=== PATIENT | female | born 1990 | race African-American/Black ===

== ENCOUNTER 2019-01-07 04:32 | Inpatient (IN) | payer OTHER ==
[~2019-01-07] VITALS: Ht 170.2 cm; Wt 117.9 kg
[2019-01-07] MEDS: LACTATED RINGERS 1,000 ML IV SCH ×2 (04:25→04:59)
[2019-01-07] MEDS ORDERED: DEXT 5%/LR + PITOCIN 20UNITS/L 1,000 ML IV SCH ×2 (04:41→07:36)
[2019-01-07] MEDS ORDERED: MISOPROSTOL 100MCG TABLET VG SCH (04:45)
[2019-01-07] MEDS ORDERED: CARBOPROST TROMETHAMINE 250 MCG/ML AMPUL IM PRN (04:45)
[2019-01-07] MEDS ORDERED: LIDOCAINE HCL 1% 20ML VIAL (Pyxis) INJ INFIL SCH (04:45)
[2019-01-07] MEDS ORDERED: BUTORPHANOL TARTRATE 2 MG/ML VIAL IV PRN (04:45)
[2019-01-07] MEDS ORDERED: METHYLERGONOVINE MALEATE 0.2 MG/ML IM PRN (04:45)
[2019-01-07 05:31] LABS: BASOPHILS % 0.4 % (0.0-2.0); EOSINOPHILS % 0.6 % (0.0-5.0); HEMATOCRIT. 27.9 % (36.0-48.0); HEMOGLOBIN. 8.9 g/dL (12.0-16.0); LYMPHOCYTES % 22.3 % (20.0-50.0); MEAN CORPUSCULAR HEMOGLOBIN 19.9 pg (28.0-32.0); MEAN CORPUSCULAR VOLUME 62.6 fL (81.0-99.0); MEAN PLATELET VOLUME 8.7 fl (7.4-10.4); MONOCYTES % 9.9 % (2.0-8.0); NEUTROPHILS % 66.8 % (40.0-76.0); PLATELET 251 x1000/uL (130-400); RED BLOOD CELL COUNT 4.46 mill/uL (4.2-5.4); RED CELL DISTRIBUTION WIDTH 16.9 % (11.6-14.6)
[2019-01-07 05:36] LABS: PARTIAL THROMBOPLASTIN TIME 27.4 sec (23.4-31.0); PROTHROMBIN TIME 10.1 sec (9.6-11.0)
[2019-01-07] MEDS ORDERED: CITRIC ACID/SODIUM CITRATE SOLN 30ML UDC PO NR (06:00)
[2019-01-07] MEDS ORDERED: MIDAZOLAM HCL 2 MG/2 ML VIAL ONE (06:06)
[2019-01-07] MEDS ORDERED: FENTANYL CITRATE/PF 50MCG/ML 2ML VIAL ONE (06:06)
[2019-01-07] MEDS ORDERED: PROPOFOL 200MG/20ML VIAL IV ONE (06:08)
[2019-01-07] MEDS ORDERED: OXYTOCIN 10 UNITS/ML 1ML ONE ×2 (06:08→07:07)
[2019-01-07] MEDS ORDERED: ROCURONIUM BROMIDE 10MG/ML VIAL 5ML IV ONE ×2 (06:09→06:10)
[2019-01-07] MEDS ORDERED: SUCCINYLCHOLINE CHLORIDE 200MG/10ML IV ONE (06:10)
[2019-01-07 06:11] LABS: HEPATITIS B SURFACE ANTIGEN NEGATIVE
[2019-01-07 06:14] LABS: PLATELET ESTIMATE NORMAL
[2019-01-07] MEDS ORDERED: GLYCOPYRROLATE 0.2 MG/ML 2ML VIAL ONE ×2 (07:12→07:13)
[2019-01-07] MEDS ORDERED: NEOSTIGMINE METHYLSULFATE 1MG/ML 10 ML VIAL ONE (07:12)
[2019-01-07] MEDS ORDERED: ALBUTEROL (0.083%) 2.5MG/3ML NEB HHN PRN (07:45)
[2019-01-07] MEDS ORDERED: IBUPROFEN 400MG TABLET PO PRN (07:45)
[2019-01-07] MEDS ORDERED: ALBUTEROL 6.7GM HFA INHALER ORI PRN (07:45)
[2019-01-07] MEDS ORDERED: RHO(D) IMMUNE GLOBULIN 300 MCG/SYR IM PRN (07:45)
[2019-01-07] MEDS: HYDROMORPHONE HCL/PF 2MG/ML CPJ IM PRN ×3 (07:58→09:58)
[2019-01-07] MEDS ORDERED: MEPERIDINE HCL/PF 25MG/ML CPJ IV PRN (08:30)
[2019-01-07] MEDS ORDERED: LABETALOL 5MG/ML SYR 20 MG/4 ML SYRINGE IV PRN (08:30)
[2019-01-07] MEDS ORDERED: HYDROMORPHONE HCL/PF 2MG/ML CPJ IV PRN (08:30)
[2019-01-07] MEDS ORDERED: ONDANSETRON HCL 4MG/2ML INJ IV PRN (08:30)
[2019-01-07] MEDS ORDERED: LABETALOL HCL 5MG/ML VIAL 20ML IV PRN ×3 (09:00)
[2019-01-07] MEDS ORDERED: ONDANSETRON INJ IV PRN (09:15)
[2019-01-07] MEDS ORDERED: HYDROMORPHONE PCA 10MG/50ML IV PRN (09:15)
[2019-01-07] MEDS ORDERED: DIPHENHYDRAMINE INJ IV PRN (09:15)
[2019-01-07] MEDS ORDERED: NALOXONE INJ IV PRN (09:15)
[2019-01-07 12:00] VITALS: BP 153/94
[2019-01-07 12:30] VITALS: BP 141/91
[2019-01-07 15:00] VITALS: BP 149/92
[2019-01-07] MEDS: KETOROLAC 30MG/ML VIAL IV PRN ×2 (16:47→20:36)
[2019-01-07 18:00] VITALS: BP 144/88
[2019-01-07 19:57] LABS: CLARITY URINE CLEAR (CLEAR); COLOR URINE DARK YELLOW (YELLOW); KETONES URINE NEGATIVE (NEGATIVE); LEUKOCYTE ESTERASE URINE TRACE (NEGATIVE); NITRITE URINE NEGATIVE (NEGATIVE); OCCULT BLOOD URINE 2+ (NEGATIVE); PROTEIN URINE 2+ (NEGATIVE); SPECIFIC GRAVITY URINE 1.021 (1.005-1.030)
[2019-01-07 20:08] LABS: *AMPHETAMINES SCREEN URINE NEGATIVE (NEGATIVE)
[2019-01-07 20:09] LABS: *BARBITURATES SCREEN URINE NEGATIVE (NEGATIVE); *COCAINE SCREEN URINE NEGATIVE (NEGATIVE); METHADONE URINE SCREEN NEGATIVE (NEGATIVE); PHENCYCLIDINE URINE SCREEN NEGATIVE (NEGATIVE)
[2019-01-07 20:10] LABS: CANNABINOID URINE SCREEN NEGATIVE (NEGATIVE)
[2019-01-07 20:13] LABS: *BENZODIAZEPINES SCREEN URINE PRESUMTIVE POSITIVE (NEGATIVE); OPIATES URINE SCREEN PRESUMTIVE POSITIVE (NEGATIVE)
[2019-01-07 20:25] VITALS: BP 144/92
[2019-01-08] VITALS (7 sets, daily range): BP systolic 140–163; BP diastolic 78–100
[2019-01-08] MEDS: KETOROLAC 30MG/ML VIAL IV PRN ×2 (03:36→08:09)
[2019-01-08 08:36] LABS: BASOPHILS % 0.3 % (0.0-2.0); EOSINOPHILS % 0.1 % (0.0-5.0); HEMOGLOBIN. 7.2 g/dL (12.0-16.0); LYMPHOCYTES % 19.6 % (20.0-50.0); MEAN CORPUSCULAR HEMOGLOBIN 19.6 pg (28.0-32.0); MEAN CORPUSCULAR VOLUME 62.6 fL (81.0-99.0); MEAN PLATELET VOLUME 8.5 fl (7.4-10.4); MONOCYTES % 7.3 % (2.0-8.0); NEUTROPHILS % 72.7 % (40.0-76.0); PLATELET 235 x1000/uL (130-400); RED BLOOD CELL COUNT 3.68 mill/uL (4.2-5.4); RED CELL DISTRIBUTION WIDTH 17.3 % (11.6-14.6)
[2019-01-08] MEDS ORDERED: ACETAMINOPHEN WITH CODEINE 300/30MG TABLET PO PRN (12:00)
[2019-01-08] MEDS ORDERED: IBUPROFEN 800MG TABLET PO PRN (12:00)
[2019-01-08] MEDS: IBUPROFEN 800MG TABLET PO PRN ×2 (13:07→18:40)
[2019-01-08] MEDS: LABETALOL HCL 200MG TABLET PO SCH ×2 (14:13→23:11)
[2019-01-08] MEDS: DOCUSATE SODIUM 100MG CAPSULE PO SCH (20:42)
[2019-01-08] MEDS ORDERED: BISACODYL 10MG SUPP PR PRN (23:00)
[2019-01-09 07:30] VITALS: BP 150/98
[2019-01-09] MEDS: LABETALOL HCL 200MG TABLET PO SCH ×2 (08:09→20:03)
[2019-01-09] MEDS: IBUPROFEN 800MG TABLET PO PRN ×3 (08:15→20:01)
[2019-01-09] MEDS: SIMETHICONE 80MG TABLET CHEW PO SCH ×4 (08:25→20:05)
[2019-01-09] MEDS ORDERED: BISACODYL 10MG SUPP PR SCH (08:30)
[2019-01-09 09:00] VITALS: BP 152/85
[2019-01-09] MEDS: MAGNESIUM HYDROXIDE 400MG/5ML 30ML UDC PO PRN ×2 (12:00→16:41)
[2019-01-09 14:00] VITALS: BP 149/88
[2019-01-09 19:20] VITALS: BP 154/97
[2019-01-09] MEDS: DOCUSATE SODIUM 100MG CAPSULE PO SCH ×2 (20:04→20:06)
[2019-01-09 20:56] VITALS: BP 145/90
[2019-01-10 03:27] VITALS: BP 159/92
[2019-01-10 08:00] VITALS: BP 147/85
[2019-01-10] MEDS: SIMETHICONE 80MG TABLET CHEW PO SCH (08:48)
[2019-01-10] MEDS: LABETALOL HCL 200MG TABLET PO SCH (08:48)
[2019-01-13 13:08] LABS: BENZODIAZEPINES CONF GC/MS Negative (Cutoff=200); OPIATES CONFIRMATION URINE Negative (Cutoff=200)
== END 2019-01-10 09:35 | disposition home or self-care (01) | DRG 540 ==
LOC: 8 EST LDRP 04:32 → OBSVTOIN 04:32 → 8EST 11:30
PROVIDERS: ADMIT Obstetrics & Gynecology; ATTEND Obstetrics & Gynecology
PROC: 10D00Z1 Extraction of Products of Conception, Low, Open Approach (ICD-10-PCS; principal; 2019-01-07)
DX: O34.211 Maternal care for low transverse scar from previous cesarean delivery (principal); D62 Acute posthemorrhagic anemia; O10.92 Unspecified pre-existing hypertension complicating childbirth; O99.214 Obesity complicating childbirth; O99.52 Diseases of the respiratory system complicating childbirth; J45.909 Unspecified asthma, uncomplicated; O69.81X0 Labor and delivery complicated by cord around neck, without compression, not applicable or unspecified; O99.03 Anemia complicating the puerperium; Z37.0 Single live birth; Z3A.38 38 weeks gestation of pregnancy; Z82.49 Family history of ischemic heart disease and other diseases of the circulatory system
CPT/HCPCS: 36415; 80305; 80346; 80361; 86592; 86703; 86762; 86850; 86900; 86920; 87340; 88307; J0330; J1170; J1885; J2250; J2590; J2704; J2710; J3010; J3490; J7120

== ENCOUNTER 2020-05-04 05:28 | Inpatient (IN) | payer OTHER ==
[~2020-05-04] VITALS: Ht 167.6 cm; Wt 114.8 kg
[2020-05-04] MEDS ORDERED: LACTATED RINGERS 1,000 ML IV SCH (06:15)
[2020-05-04] MEDS ORDERED: CARBOPROST TROMETHAMINE 250 MCG/ML AMPUL IM PRN (06:15)
[2020-05-04] MEDS ORDERED: METHYLERGONOVINE MALEATE 0.2 MG/ML IM PRN (06:15)
[2020-05-04] MEDS ORDERED: DEXT 5%/LR + PITOCIN 20UNITS/L 1,000 ML IV SCH ×2 (06:15→08:30)
[2020-05-04 06:24] LABS: BASOPHILS % 0.2 % (0.0-2.0); EOSINOPHILS % 0.4 % (0.0-5.0); HEMATOCRIT. 28.3 % (36.0-48.0); HEMOGLOBIN. 8.9 g/dL (12.0-16.0); MEAN CORPUSCULAR HEMOGLOBIN 19.6 pg (28.0-32.0); MEAN CORPUSCULAR VOLUME 62.3 fL (81.0-99.0); MEAN PLATELET VOLUME 8.4 fl (7.4-10.4); MONOCYTES % 8.5 % (2.0-8.0); NEUTROPHILS % 63.9 % (40.0-76.0); PLATELET 223 x1000/uL (130-400); RED BLOOD CELL COUNT 4.54 mill/uL (4.2-5.4); RED CELL DISTRIBUTION WIDTH 17.9 % (11.6-14.6)
[2020-05-04] MEDS ORDERED: CITRIC ACID/SODIUM CITRATE SOLN 30ML UDC PO NR (06:31)
[2020-05-04 06:35] LABS: PARTIAL THROMBOPLASTIN TIME 27.8 sec (23.4-31.0); PROTHROMBIN TIME 10.5 sec (9.6-11.0)
[2020-05-04] MEDS ORDERED: PROPOFOL 200MG/20ML VIAL IV ONE (06:39)
[2020-05-04] MEDS ORDERED: SUCCINYLCHOLINE CHLORIDE 200MG/10ML IV ONE (06:39)
[2020-05-04] MEDS ORDERED: LIDOCAINE HCL/PF 1% 10 MG/ML 5ML VIAL ONE ×3 (06:42→07:30)
[2020-05-04] MEDS ORDERED: OXYTOCIN 10 UNITS/ML 1ML ONE (06:42)
[2020-05-04] MEDS ORDERED: CEFAZOLIN SODIUM 1000MG/VIAL ONE (06:43)
[2020-05-04] MEDS ORDERED: SODIUM CHLORIDE 0.9% 10ML VIAL ONE (06:50)
[2020-05-04 07:06] LABS: HEPATITIS B SURFACE ANTIGEN NEGATIVE
[2020-05-04 07:08] LABS: PLATELET ESTIMATE NORMAL
[2020-05-04] MEDS ORDERED: FENTANYL CITRATE/PF 50MCG/ML 2ML VIAL ONE ×2 (07:11→07:18)
[2020-05-04] MEDS ORDERED: MIDAZOLAM HCL 2 MG/2 ML VIAL ONE (07:12)
[2020-05-04] MEDS ORDERED: HYDRALAZINE 20MG/ML VIAL ONE (07:46)
[2020-05-04] MEDS ORDERED: GLYCERIN/WITCH HAZEL LEAF MEDICATED PAD TOP PRN (08:30)
[2020-05-04] MEDS ORDERED: IBUPROFEN 400MG TABLET PO PRN (08:30)
[2020-05-04] MEDS ORDERED: BISACODYL 10MG SUPP PR PRN (08:30)
[2020-05-04] MEDS ORDERED: LANOLIN OINT 7GM TUBE TOP PRN (08:30)
[2020-05-04] MEDS ORDERED: HEMORRHOIDAL SUPP PR PRN (08:30)
[2020-05-04] MEDS ORDERED: DIPHENHYDRAMINE 25MG CAPSULE PO PRN (08:30)
[2020-05-04 08:31] LABS: CLARITY URINE CLOUDY (CLEAR); COLOR URINE DARK YELLOW (YELLOW); KETONES URINE NEGATIVE (NEGATIVE); LEUKOCYTE ESTERASE URINE NEGATIVE (NEGATIVE); NITRITE URINE NEGATIVE (NEGATIVE); OCCULT BLOOD URINE 2+ (NEGATIVE); PROTEIN URINE 1+ (NEGATIVE); SPECIFIC GRAVITY URINE 1.026 (1.005-1.030)
[2020-05-04 08:53] LABS: *AMPHETAMINES SCREEN URINE NEGATIVE (NEGATIVE)
[2020-05-04 08:54] LABS: *BARBITURATES SCREEN URINE NEGATIVE (NEGATIVE); *BENZODIAZEPINES SCREEN URINE NEGATIVE (NEGATIVE); *COCAINE SCREEN URINE NEGATIVE (NEGATIVE); METHADONE URINE SCREEN NEGATIVE (NEGATIVE); OPIATES URINE SCREEN NEGATIVE (NEGATIVE); PHENCYCLIDINE URINE SCREEN NEGATIVE (NEGATIVE)
[2020-05-04 08:57] LABS: CANNABINOID URINE SCREEN PRESUMTIVE POSITIVE (NEGATIVE)
[2020-05-04 09:00] VITALS: BP 137/82
[2020-05-04] MEDS ORDERED: PRENATAL VIT/FE FUMARATE/FA TABLET PO SCH (09:00)
[2020-05-04 09:46] LABS: CHLORIDE 109 mEq/L (98-107)
[2020-05-04 10:00] VITALS: BP 122/78
[2020-05-04 11:00] VITALS: BP 119/75
[2020-05-04] MEDS: IBUPROFEN 800MG TABLET PO PRN ×2 (11:41→17:50)
[2020-05-04] MEDS: BENZOCAINE/LANOLIN/ALOE VERA SPRAY TOP PRN (11:47)
[2020-05-04 14:00] VITALS: BP 125/79
[2020-05-04 20:00] VITALS: BP 129/70
[2020-05-04] MEDS: DOCUSATE SODIUM 100MG CAPSULE PO SCH (21:11)
[2020-05-05] VITALS: BP 125/78
[2020-05-05] MEDS: IBUPROFEN 800MG TABLET PO PRN ×3 (03:09→19:56)
[2020-05-05 03:17] VITALS: BP 126/78
[2020-05-05 07:35] LABS: BASOPHILS % 0.3 % (0.0-2.0); EOSINOPHILS % 0.5 % (0.0-5.0); LYMPHOCYTES % 20.9 % (20.0-50.0); MEAN CORPUSCULAR HEMOGLOBIN 19.7 pg (28.0-32.0); MEAN CORPUSCULAR VOLUME 62.1 fL (81.0-99.0); MEAN PLATELET VOLUME 8.9 fl (7.4-10.4); MONOCYTES % 8.2 % (2.0-8.0); NEUTROPHILS % 70.1 % (40.0-76.0); PLATELET 212 x1000/uL (130-400); RED BLOOD CELL COUNT 3.39 mill/uL (4.2-5.4); RED CELL DISTRIBUTION WIDTH 17.7 % (11.6-14.6)
[2020-05-05 08:00] VITALS: BP 129/66
[2020-05-05] MEDS: FERROUS SULFATE 325MG TABLET PO SCH ×3 (08:11→17:28)
[2020-05-05] MEDS: ACETAMINOPHEN WITH CODEINE 300/30MG TABLET PO PRN ×2 (08:12→17:28)
[2020-05-05 09:05] LABS: HEMOGLOBIN. 6.7 g/dL (12.0-16.0)
[2020-05-05 16:30] VITALS: BP 136/79
[2020-05-05 19:30] VITALS: BP 138/77
[2020-05-05] MEDS: DOCUSATE SODIUM 100MG CAPSULE PO SCH (19:57)
[2020-05-06] MEDS: ACETAMINOPHEN WITH CODEINE 300/30MG TABLET PO PRN (01:06)
[2020-05-06 04:00] VITALS: BP 131/69
[2020-05-06] MEDS ORDERED: FERR325T23 PO (07:16)
[2020-05-06] MEDS ORDERED: IBUP-2030 PO (07:16)
[2020-05-06 07:30] VITALS: BP 131/72
[2020-05-06] MEDS: IBUPROFEN 800MG TABLET PO PRN (09:47)
[2020-05-06] MEDS: BENZOCAINE/LANOLIN/ALOE VERA SPRAY TOP PRN (09:48)
[2020-05-09 07:07] LABS: CANNABINOID CONFIRMATION URINE Positive (.)
== END 2020-05-06 10:00 | disposition home or self-care (01) | DRG 560 ==
LOC: 8 EST LDRP 05:28 → OBSVTOIN 05:28 → 8EST 08:54
PROVIDERS: ADMIT Specialist; ATTEND Specialist
PROC: 10E0XZZ Delivery of Products of Conception, External Approach (ICD-10-PCS; principal; 2020-05-04)
PROC: 0HQ9XZZ Repair Perineum Skin, External Approach (ICD-10-PCS; 2020-05-04)
DX: O34.219 Maternal care for unspecified type scar from previous cesarean delivery (principal); O16.4 Unspecified maternal hypertension, complicating childbirth; D64.9 Anemia, unspecified; E66.9 Obesity, unspecified; F12.10 Cannabis abuse, uncomplicated; O71.4 Obstetric high vaginal laceration alone; O99.02 Anemia complicating childbirth; O99.214 Obesity complicating childbirth; O99.324 Drug use complicating childbirth; Z37.0 Single live birth; Z3A.38 38 weeks gestation of pregnancy; Z72.0 Tobacco use; Z79.899 Other long term (current) drug therapy; Z68.41 Body mass index [BMI] 40.0-44.9, adult
CPT/HCPCS: 36415; 80053; 80305; 80349; 81003; 84550; 85025; 85384; 86592; 86703; 86762; 86850; 86900; 87340; 99281; J0330; J0360; J0690; J2250; J2590; J2704; J3010; J3490; J7120

== ENCOUNTER 2022-12-22 09:12 | Emergency (ER) | payer MEDICAID, OTHER ==
[~2022-12-22] VITALS: Ht 172.7 cm; Wt 100.0 kg
[~2022-12-22 09:12] MED LIST: FERR325T23 PO; IBUP-2030 PO
[2022-12-22] MEDS ORDERED: METOCLOPRAMIDE HCL 10MG/2ML VIAL IV ONE (09:30)
[2022-12-22] MEDS ORDERED: SODIUM CHLORIDE 0.9% 1,000 ML IV ONE (09:30)
[2022-12-22] MEDS ORDERED: ACETAMINOPHEN 325MG TABLET PO PRN (09:30)
[2022-12-22 12:16] LABS: BASOPHILS % 0.5 % (0.0-2.0); EOSINOPHILS % 0.5 % (0.0-5.0); HEMATOCRIT. 32.9 % (36.0-48.0); HEMOGLOBIN. 10.8 g/dL (12.0-16.0); MEAN CORPUSCULAR HEMOGLOBIN 22.5 pg (28.0-32.0); MEAN CORPUSCULAR VOLUME 68.7 fL (81.0-99.0); MEAN PLATELET VOLUME 10.8 fl (7.4-10.4); MONOCYTES % 5.7 % (2.0-8.0); NEUTROPHILS % 74.3 % (40.0-76.0); PLATELET 387 x1000/uL (130-400); RED CELL DISTRIBUTION WIDTH 16.2 % (11.6-14.6)
[2022-12-22] MEDS ORDERED: METOCLOPRAMIDE HCL 10MG/2ML VIAL IV NR (12:30)
[2022-12-22 12:58] LABS: B-HCG QUANTITATIVE 84041 mIU/mL (<3)
[2022-12-22 13:01] LABS: CHLORIDE 106 mEq/L (98-107)
[2022-12-22] MEDS ORDERED: METO-293 MT (13:15)
[2022-12-22] MEDS ORDERED: ACET-2708 MT (13:15)
[2022-12-22 13:28] LABS: PLATELET ESTIMATE NORMAL
[2022-12-22 13:38] VITALS: BP 128/78
== END 2022-12-22 13:41 | disposition home or self-care (01) ==
LOC: ER 09:12
DX: R10.31 Right lower quadrant pain (principal); I10 Essential (primary) hypertension; Z98.890 Other specified postprocedural states
CPT/HCPCS: 36415; 74181; 76801; 76817; 80053; 84702; 85025; 86850; 86900; 86901; 96374; 99285; J2765; J7030; Z7610